=== PATIENT | female | born 1980 ===

== ENCOUNTER 2016-11-24 18:42 | Emergency (ER) | payer OTHER ==
[2016-11-24 19:42] VITALS: BP 139/88
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
[2016-11-24] MEDS ORDERED: Cyclobenzaprine TAB* 10 MG PO ONE (21:23)
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
== END 2016-11-24 21:38 | disposition home or self-care (01) ==
LOC: UCCORT 18:42
DX: R07.89 Other chest pain (principal); M25.512 Pain in left shoulder; I10 Essential (primary) hypertension; Z88.1 Allergy status to other antibiotic agents; F17.210 Nicotine dependence, cigarettes, uncomplicated
CPT/HCPCS: 99202; A9270-GY; G0463